=== PATIENT | female | born 1965 | race Caucasian/White ===

== ENCOUNTER 2017-07-23 13:45 | Emergency (ER) | payer OTHER ==
[~2017-07-23] VITALS: Ht 157.5 cm; Wt 72.6 kg
[~2017-07-23 13:45] MED LIST: CHOL10002; CYCL10 PO; HYDACE5 PO; LEVSOD50; METHI10; Norco 10-325 T1 EACH PO; PROP120ER
== END 2017-07-23 15:44 | disposition home or self-care (01) ==
LOC: ER 13:45
DX: S61.213A Laceration without foreign body of left middle finger without damage to nail, initial encounter (principal); E03.9 Hypothyroidism, unspecified; Z88.0 Allergy status to penicillin; Z79.899 Other long term (current) drug therapy; Z87.891 Personal history of nicotine dependence; W31.89XA Contact with other specified machinery, initial encounter
CPT/HCPCS: 12002; 99283

== ENCOUNTER 2018-04-23 20:19 | Emergency (ER) | payer OTHER ==
[~2018-04-23] VITALS: Ht 157.5 cm; Wt 74.8 kg
[2018-04-23 20:54] LABS: BASOPHILS ABSOLUTE AUTO 0.04 K/mm3 (0.00-0.23); BASOPHILS PERCENT AUTO 1 % (0-2); EOSINOPHILS ABSOLUTE AUTO 0.25 K/mm3 (0.00-0.68); EOSINOPHILS PERCENT AUTO 3 % (0-6); Hematocrit 37.9 % (33.0-51.0); Hemoglobin 12.8 g/dL (11.5-16.0); IMMATURE GRAN ABSOLUTE AUTO 0.01 K/mm3 (0.00-0.10); IMMATURE GRAN PERCENT AUTO 0 % (0-1); LYMPHOCYTES ABSOLUTE AUTO 3.17 K/mm3 (0.84-5.20); LYMPHOCYTES PERCENT AUTO 40 % (21-46); MONOCYTES ABSOLUTE AUTO 0.67 K/mm3 (0.16-1.47); MONOCYTES PERCENT AUTO 8 % (4-13); Mean Corpuscular HGB 30.4 pg (26.0-34.0); Mean Corpuscular HGB Conc 33.8 g/dL (31.5-36.5); Mean Corpuscular Volume 90 fL (80-100); NEUTROPHILS ABSOLUTE AUTO 3.84 K/mm3 (1.96-9.15); NEUTROPHILS PERCENT AUTO 48 % (41-73); Platelet Count 279 K/mm3 (150-400); RDW Coefficient Variation 12.8 % (11.7-14.2); Red Blood Cell Count 4.21 M/mm3 (3.80-5.20); White Blood Cell Count 7.98 K/mm3 (4.00-11.30)
[2018-04-23 21:15] LABS: Alanine Aminotransfer (ALT/SGP 18 U/L (12-78); Albumin, Blood 4.3 g/dL (3.4-5.0); Albumin/Globulin Ratio 1.1 (0.8-1.8); Alk Phos 71 U/L (50-136); Anion Gap 8 mmol/L (6-16); Aspartate Aminotrans (AST/SGOT 18 U/L (12-37); Bilirubin, Total 0.4 mg/dL (0.1-1.0); Blood Urea Nitrogen 19 mg/dL (8-24); Bun/Creatinine Ratio 15.4 (12.0-20.0); CO2, Blood 25 mmol/L (21-32); Calcium, Blood 8.9 mg/dL (8.5-10.1); Chloride, Blood 107 mmol/L (98-108); Creatinine, Blood 1.23 mg/dL (0.40-1.00); Globulin, Blood 3.8 g/dL (2.2-4.0); Glomerular Filtration Rate 48 (60-); Glucose, Blood 88 mg/dL (70-99); Potassium, Blood 3.8 mmol/L (3.5-5.5); Sodium, Blood 140 mmol/L (136-145); Total Protein, Blood 8.1 g/dL (6.4-8.2); Troponin I <0.015 ng/mL (0.000-0.040)
[2018-04-23] MEDS ORDERED: Synthroid25 MCG PO (22:14)
[2018-04-23] MEDS ORDERED: BUPR150ER PO (22:14)
== END 2018-04-24 00:34 | disposition home or self-care (01) ==
LOC: ER 20:19
PROVIDERS: Physician Assistant
DX: F41.0 Panic disorder [episodic paroxysmal anxiety] (principal); R07.9 Chest pain, unspecified; Z88.0 Allergy status to penicillin; Z79.899 Other long term (current) drug therapy; E03.9 Hypothyroidism, unspecified; Z87.891 Personal history of nicotine dependence
CPT/HCPCS: 36415; 71046; 80053; 83690; 84484; 85025; 93005; 93010; 99285-25

== ENCOUNTER 2018-06-23 03:29 | Emergency (ER) | payer OTHER ==
[~2018-06-23] VITALS: Ht 157.5 cm; Wt 72.6 kg
[~2018-06-23 03:29] MED LIST changes: +BUPR150ER PO; +Synthroid25 MCG PO
[2018-06-23] MEDS ORDERED: CEPH500 PO (04:16)
== END 2018-06-23 04:25 | disposition home or self-care (01) ==
LOC: ER 03:29
DX: J02.9 Acute pharyngitis, unspecified (principal); Z88.0 Allergy status to penicillin; Z79.899 Other long term (current) drug therapy; E03.9 Hypothyroidism, unspecified; Z87.891 Personal history of nicotine dependence
CPT/HCPCS: 99282; J1100

== ENCOUNTER → 2018-06-26 | Outpatient (CLI) | payer OTHER ==
[~2018-06-26] MED LIST changes: +CEPH500 PO
== END | disposition home or self-care (01) ==
LOC: LAB SHORT 12:39 → LAB EV 12:39
DX: J02.9 Acute pharyngitis, unspecified (principal)
CPT/HCPCS: 87070; 87077; 87185

== ENCOUNTER → 2018-07-01 | Outpatient (CLI) | payer OTHER ==
[2018-07-01 17:11] LABS: BASOPHILS ABSOLUTE AUTO 0.04 K/mm3 (0.00-0.23); BASOPHILS PERCENT AUTO 1 % (0-2); EOSINOPHILS ABSOLUTE AUTO 0.25 K/mm3 (0.00-0.68); EOSINOPHILS PERCENT AUTO 3 % (0-6); Hematocrit 41.1 % (33.0-51.0); IMMATURE GRAN ABSOLUTE AUTO 0.02 K/mm3 (0.00-0.10); IMMATURE GRAN PERCENT AUTO 0 % (0-1); LYMPHOCYTES ABSOLUTE AUTO 2.87 K/mm3 (0.84-5.20); LYMPHOCYTES PERCENT AUTO 36 % (21-46); MONOCYTES ABSOLUTE AUTO 0.59 K/mm3 (0.16-1.47); MONOCYTES PERCENT AUTO 7 % (4-13); Mean Corpuscular HGB 29.2 pg (26.0-34.0); Mean Corpuscular HGB Conc 34.1 g/dL (31.5-36.5); Mean Corpuscular Volume 86 fL (80-100); Mean Platelet Volume 9.9 fL (9.1-12.4); NEUTROPHILS ABSOLUTE AUTO 4.24 K/mm3 (1.96-9.15); NEUTROPHILS PERCENT AUTO 53 % (41-73); Platelet Count 322 K/mm3 (150-400); RDW Coefficient Variation 11.7 % (11.7-14.2); RDW Standard Deviation 36.2 fL (35.1-46.3); White Blood Cell Count 8.01 K/mm3 (4.00-11.30)
[2018-07-01 17:15] LABS: Bun/Creatinine Ratio 15.5 (12.0-20.0); Calcium, Blood 9.5 mg/dL (8.5-10.1); Creatinine, Blood 1.03 mg/dL (0.40-1.00); Potassium, Blood 3.9 mmol/L (3.5-5.5)
== END | disposition home or self-care (01) ==
LOC: LAB SHORT 17:00 → LAB EV 17:00
PROVIDERS: Physician Assistant Surgical
DX: R07.81 Pleurodynia (principal)
CPT/HCPCS: 80048; 85025; 85379

== ENCOUNTER → 2018-08-09 | Outpatient (CLI) | payer OTHER ==
[2018-08-10 13:19] LABS: Stool Occult Bld Immuno 1 Positive (NEGATIVE)
== END | disposition home or self-care (01) ==
LOC: LAB 08:55 → LAB SHORT 08:55
PROVIDERS: Family Medicine
DX: Z12.11 Encounter for screening for malignant neoplasm of colon (principal)
CPT/HCPCS: G0328

== ENCOUNTER 2019-11-29 06:16 | Day surgery (SDC) | payer OTHER ==
[~2019-11-29] VITALS: Ht 157.5 cm; Wt 72.1 kg
[~2019-11-29 06:16] MED LIST changes: +ALBU90OI INH; +ALPR.5 PO; +ERGO50000 PO; +IBUP800 PO; +LEVSOD100 PO; +LEVSOD25 PO
--- NOTE | 2019-11-29 07:36 | NUR ---
11/29/19 0736 Alejandar Garcia SCAB ON RIGHT WRIST, OK PER DR VELOZ
--- NOTE | 2019-11-29 08:38 | NUR ---
11/29/19 0838 Mayela Lawson PT SENT HOME WITH MEDIUM SLING TO RIGHT ARM.
== END 2019-11-29 08:29 | disposition home or self-care (01) ==
LOC: ORSCSDS 06:16
PROVIDERS: Orthopaedic Surgery
PROC: 01N50ZZ Release Median Nerve, Open Approach (ICD-10-PCS; principal; 2019-11-29 07:30)
DX: G56.01 Carpal tunnel syndrome, right upper limb (principal); E05.90 Thyrotoxicosis, unspecified without thyrotoxic crisis or storm; Z79.899 Other long term (current) drug therapy; Z87.891 Personal history of nicotine dependence
CPT/HCPCS: J2250; J2704; J7120

== ENCOUNTER 2020-01-17 06:54 | Day surgery (SDC) | payer OTHER ==
[~2020-01-17] VITALS: Ht 157.5 cm; Wt 73.4 kg
--- NOTE | 2020-01-17 07:36 | NUR ---
01/17/20 0736 Rena KwonJennifer CHARTED BY LUPE NOVA RN
[2020-01-17] MEDS ORDERED: IBU800 MG PO (07:40)
--- NOTE | 2020-01-17 10:19 | NUR ---
01/17/20 Jose9 SHIV BECKETT ZOFRAN 4MG IV SLOW PUSH:PT STATED IV SITE "FLUSH AND ITCHY", WITHIN 5 MINUTES PATIENT STATED RETURNED TO NORMAL WITHOUT DISCOMFORT.
== END 2020-01-17 09:45 | disposition home or self-care (01) ==
LOC: ORSCSDS 06:54
PROVIDERS: Orthopaedic Surgery
PROC: 01N50ZZ Release Median Nerve, Open Approach (ICD-10-PCS; principal; 2020-01-17 08:15)
DX: G56.02 Carpal tunnel syndrome, left upper limb (principal); J45.909 Unspecified asthma, uncomplicated; Z87.891 Personal history of nicotine dependence; Z79.899 Other long term (current) drug therapy
CPT/HCPCS: J2250; J2405; J2704; J7120

== ENCOUNTER 2021-04-30 05:57 | Day surgery (SDC) | payer OTHER ==
[~2021-04-30] VITALS: Ht 157.5 cm; Wt 65.1 kg
[~2021-04-30 05:57] MED LIST changes: +IBU800 MG PO
--- NOTE | 2021-04-30 06:25 | NUR ---
PT ADMITTED TO [facility]. AGREES WITH PLANNED SURGERY. LUNG SOUNDS DIMINISHED.
[2021-04-30] MEDS ORDERED: ASPI81CH PO (15:03)
[2021-04-30] MEDS ORDERED: Percocet 5-3251 EACH PO (15:06)
--- NOTE | 2021-04-30 15:33 | NUR ---
04/30/21 1533 Theo Marcelino CHART EDIT.
--- NOTE | 2021-04-30 16:00 | NUR ---
DISCHARGE SUMMARY POD0 R TKA, A/O X4, VSS, TOLERATING DIET, AMBULATING INDEPENDENTLY c FWW/GB, PAIN WELL MANAGED c ORAL MEDICATIONS, DID WELL c THERAPY (PT/OT). DISCUSSED DISCHARGE INFORMATION c EMPHASIS ON POST OP CARE, ACTIVITY, PAIN MANAGEMENT, THINGS TO BE ON THE LOOK OUT FOR AND CONTACT INFORMATION SHOULD ANY QUESTIONS ARISE PRIOR TO HER FOLLOW UP. IV ACCESS REMOVED PRIOR TO HER LEAVING, ALL QUESTIONS ANSWERED/EXPLAINED TO PT SATISFACTION. PT ESCORTED OUT VIA WC BY THIS RN WITH ALL PERSONAL POSSESSIONS AND ASSISTED INTO HER PRIVATE AUTO. NOTHING FOLLOWS.
== END 2021-04-30 15:45 | disposition home or self-care (01) ==
LOC: ORSCMMR 05:57 → ORD 07:30 → SURS 09:48 → ORSCMMR 15:45
DX: M17.11 Unilateral primary osteoarthritis, right knee (principal); J45.909 Unspecified asthma, uncomplicated; E03.9 Hypothyroidism, unspecified; Z79.899 Other long term (current) drug therapy; Z87.891 Personal history of nicotine dependence
CPT/HCPCS: 27447; S2900; 73560-RT; 97110; 97110-CQ; 97116-CQ; 97161; A9270; C1776; J0171; J0690; J0735; J1100; J1885; J2250; J2405; J2550; J2704; J2795; J3010; J7120

== ENCOUNTER 2021-08-06 07:40 | Day surgery (SDC) | payer OTHER ==
[~2021-08-06] VITALS: Ht 157.5 cm; Wt 65.7 kg
[~2021-08-06 07:40] MED LIST changes: +ASPI81CH PO; +Percocet 5-3251 EACH PO
--- NOTE | 2021-08-06 08:28 | NUR ---
08/06/21 0828 Ronal Causey CALL LIGHT WITHIN REACH.
--- NOTE | 2021-08-06 09:53 | NUR ---
08/06/21 0953 Alejandra Garcia 1 MG EPI ADDED TO EACH OF THE FIRST 3 BAGS OF LR FOR IRRGATION AT [facility].
--- NOTE | 2021-08-06 12:04 | NUR ---
08/06/21 1204 Basia Briscoe WHILE IN STEP DOWN. PT DENIES PAIN. TOLERATED PO FLUIDS WELL. TREATED ONCE FOR NAUSEA PER DR'S ORDERS. VSS. DISCHARGE INSTRUCTIONS REVIEWED. PT SENT HOME WITH GLASSES AND DENTURES. IV REMOVED. PT LEFT UNIT VIA WHEELCHAIR, TO DRIVE HOME.
== END 2021-08-06 11:59 | disposition home or self-care (01) ==
LOC: ORSCSDS 07:40
PROVIDERS: Orthopaedic Surgery
PROC: 0RNK4ZZ Release Left Shoulder Joint, Percutaneous Endoscopic Approach (ICD-10-PCS; principal; 2021-08-06 09:15)
PROC: 0LM24ZZ Reattachment of Left Shoulder Tendon, Percutaneous Endoscopic Approach (ICD-10-PCS; principal; 2021-08-06 09:15)
PROC: 0LS44ZZ Reposition Left Upper Arm Tendon, Percutaneous Endoscopic Approach (ICD-10-PCS; principal; 2021-08-06 09:15)
DX: M75.122 Complete rotator cuff tear or rupture of left shoulder, not specified as traumatic (principal); S46.812A Strain of other muscles, fascia and tendons at shoulder and upper arm level, left arm, initial encounter; M19.012 Primary osteoarthritis, left shoulder; M75.42 Impingement syndrome of left shoulder; M75.22 Bicipital tendinitis, left shoulder; M94.212 Chondromalacia, left shoulder; E03.9 Hypothyroidism, unspecified; Z79.899 Other long term (current) drug therapy; Z87.891 Personal history of nicotine dependence
CPT/HCPCS: C1713; J0171; J1100; J1885; J2250; J2405; J2704; J2765; J3010; J7120

== ENCOUNTER → 2021-11-11 | Outpatient (CLI) | payer OTHER | LOC: LAB SHORT 15:11 | DX: A63.0 Anogenital (venereal) warts (principal) | CPT/HCPCS: 88305 ==

== ENCOUNTER → 2021-11-18 | Outpatient (CLI) | payer OTHER ==
[2021-11-18 14:40] LABS: Candida species (DNA Probe) Negative (NEGATIVE); G. vaginalis (DNA Probe) Negative (NEGATIVE); T. vaginalis (DNA Probe) Negative (NEGATIVE)
== END | disposition home or self-care (01) ==
LOC: LAB 11:48 → LAB SHORT 11:48
PROVIDERS: Family Medicine
DX: N76.0 Acute vaginitis (principal)
CPT/HCPCS: 87480; 87510; 87660

== ENCOUNTER → 2024-07-21 | Outpatient (CLI) | payer OTHER ==
[2024-07-25 14:34] LABS: Stool Occult Bld Immuno 1 Negative (NEGATIVE)
== END ==
LOC: LAB 12:00 → LAB SHORT 12:00
PROVIDERS: Physician Assistant Medical
DX: Z12.11 Encounter for screening for malignant neoplasm of colon (principal)
CPT/HCPCS: 82274